=== PATIENT | male | born 1975 | race Caucasian/White ===

== ENCOUNTER 2019-04-21 03:30 | Inpatient (IN) | payer OTHER ==
[~2019-04-21] VITALS: Ht 177.8 cm; Wt 74.0 kg
--- NOTE | 2019-04-21 03:49 | NUR ---
FIRST CONTACT WITH PT. PT AWOKE WITH LEFT ARM/BACK PAIN AND CP AT 0300. PT'S AOX4. RESPS EVEN AND UNLABORED. EKG DONE AT BEDSIDE BY EMT. ALL MONITORS IN PLACE. CALL LIGHT WITHIN REACH.
[2019-04-21] MEDS ORDERED: ONDANSETRON 2MG/ML, 2ML ONE (03:56)
[2019-04-21] MEDS ORDERED: MORPHINE SULFATE 4 MG/ML, 1ML ONE ×2 (03:57→06:20)
[2019-04-21] MEDS ORDERED: ONDANSETRON 2MG/ML, 2ML IVPush ONE (04:00)
[2019-04-21] MEDS: MORPHINE SULFATE 4 MG/ML, 1ML IVPush PRN ×2 (04:03→06:22)
--- NOTE | 2019-04-21 04:06 | NUR ---
pt medicated per emar. pt tolerated well.
[2019-04-21 04:26] LABS: BASOPHILS # (AUTO) 0.07 x10^3/uL (0-0.1); BASOPHILS % (AUTO) 1 % (0-1); EOSINOPHILS # (AUTO) 0.24 x10^3/uL (0-0.4); EOSINOPHILS % (AUTO) 3 % (1-7); LYMPHOCYTES % (AUTO) 20 % (22-44); MD NO; MEAN CORPUSCULAR HEMOGLOBIN 31.1 pg (27.5-34.5); MEAN CORPUSCULAR HGB CONC 33.3 g/dL (33.2-36.2); MEAN CORPUSCULAR VOLUME 93.4 fL (81-97); MEAN PLATELET VOLUME 9.4 fL (7.4-10.4); MONOCYTES # (AUTO) 0.84 x10^3/uL (0.2-0.8); MONOCYTES % (AUTO) 9 % (2-9); NEUTROPHILS % (AUTO) 68 % (42-75); PLATELET COUNT 241 x10^3/uL (130-400); RED BLOOD COUNT 5.03 x10^6/uL (4.38-5.82); RED CELL DISTRIBUTION WIDTH 13.4 % (9.4-14.8)
[2019-04-21 04:37] LABS: ANION GAP 9 mmol/L (5-15); CALCIUM 9.5 mg/dL (8.5-10.1); CHLORIDE 108 mmol/L (98-107)
[2019-04-21 04:44] LABS: ALANINE AMINOTRANSFERASE 27 U/L (12-78); ALKALINE PHOSPHATASE 110 U/L (45-117); BILIRUBIN,TOTAL 1.2 mg/dL (0.2-1.0); CREATININE 1.11 mg/dL (0.7-1.3); TOTAL PROTEIN 7.1 g/dL (6.4-8.2); TROPONIN I < 0.015 ng/mL (0.000-0.045)
--- NOTE | 2019-04-21 04:51 | NUR ---
pt to ct now.
--- NOTE | 2019-04-21 05:03 | NUR ---
pt back to room from ct.
[2019-04-21] MEDS ORDERED: OMNIPAQUE 350 MG/ML, 100ML BOTTLE ONE (05:09)
--- NOTE | 2019-04-21 06:09 | NUR ---
PT RESTING IN [facility]. RESPS EVEN AND UNLABORED. ALL MONITORS IN PLACE. CALL LIGHT WITHIN REACH.
--- NOTE | 2019-04-21 06:24 | NUR ---
pt medicated per emar for pain. pt tolerated well.
[2019-04-21] MEDS ORDERED: HEPARIN 5,000 UNITS/ML, 1ML ONE (06:29)
[2019-04-21] MEDS ORDERED: HEPARIN 25,000 UNITS/500ML PMX 500 ML ONE (06:30)
[2019-04-21] MEDS ORDERED: HEPARIN 5,000 UNITS/ML, 1ML IV ONE (06:30)
[2019-04-21] MEDS: HEPARIN 25,000 UNITS/500ML PMX 500 ML IV PRN (06:44)
--- NOTE | 2019-04-21 06:46 | NUR ---
pt medicated per emar. pt tolerated well.
--- NOTE | 2019-04-21 06:58 | NUR ---
REPORT GIVEN TO BHARATH BERMAN.
--- NOTE | 2019-04-21 06:59 | NUR ---
REPORT TAKEN FROM MADELINE. PT DENIES NEEDS AT THIS TIME. CALL LIGHT IN REACH.
--- NOTE | 2019-04-21 07:22 | NUR ---
SECOND IV STARTED. [facility] DR. OVALLES AT BEDSIDE TO UPDATE PT ON POC. PT DENIES NEEDS AT THIS TIME. CALL LIGHT IN REACH.
[2019-04-21] MEDS ORDERED: LABETALOL 5MG/ML, 20ML IVPush PRN (07:30)
[2019-04-21] MEDS ORDERED: ACETAMINOPHEN 325 MG TABLET PO PRN (07:30)
[2019-04-21] MEDS ORDERED: hydrALAzine 20 MG/ML, 1ML IVPush PRN (07:30)
[2019-04-21] MEDS ORDERED: ONDANSETRON 2MG/ML, 2ML IVPush PRN (07:30)
[2019-04-21] MEDS ORDERED: OXYcodone/APAP 5/325MG TABLET PO PRN (07:30)
--- NOTE | 2019-04-21 07:45 | NUR ---
REPORT GIVEN TO ANTONELLA SOMMER ON CARDIAC TELE.
[2019-04-21] MEDS: KETOROLAC 30 MG/1 ML IV PRN ×2 (08:04→14:14)
[2019-04-21 08:05] VITALS: BP 128/81
[2019-04-21] MEDS: SODIUM CHLORIDE 0.9% 1,000 ML IV SCH (08:07)
[2019-04-21] MEDS: NICOTINE 7 MG/24 HR PATCH.TD24 TD SCH (08:07)
[2019-04-21 08:14] LABS: TROPONIN I < 0.015 ng/mL (0.000-0.045)
[2019-04-21 13:01] LABS: TROPONIN I < 0.015 ng/mL (0.000-0.045)
[2019-04-21 15:00] VITALS: BP 118/76
[2019-04-21] MEDS ORDERED: DIPHENHYDRAMINE 25 MG CAPSULE PO PRN (18:00)
[2019-04-21] MEDS ORDERED: PROMETHAZINE 25 MG/ML, 1ML IM PRN (18:00)
[2019-04-21] MEDS ORDERED: OMEP20TA62 PO (18:05)
[2019-04-21 20:26] VITALS: BP 142/82
[2019-04-21] MEDS: morphine SULFATE 10 MG/ML, 1ML IVPush PRN (20:28)
[2019-04-21] MEDS ORDERED: HEPARIN 5,000 UNITS/ML, 1ML IV PRN (20:30)
[2019-04-22 03:06] LABS: BASOPHILS # (AUTO) 0.02 x10^3/uL (0-0.1); BASOPHILS % (AUTO) 0 % (0-1); EOSINOPHILS # (AUTO) 0.13 x10^3/uL (0-0.4); EOSINOPHILS % (AUTO) 2 % (1-7); LYMPHOCYTES # (AUTO) 1.87 x10^3/uL (1-3.4); LYMPHOCYTES % (AUTO) 23 % (22-44); MD NO; MEAN CORPUSCULAR HEMOGLOBIN 31.2 pg (27.5-34.5); MEAN CORPUSCULAR HGB CONC 33.3 g/dL (33.2-36.2); MEAN CORPUSCULAR VOLUME 93.8 fL (81-97); MEAN PLATELET VOLUME 9.3 fL (7.4-10.4); MONOCYTES # (AUTO) 0.68 x10^3/uL (0.2-0.8); MONOCYTES % (AUTO) 9 % (2-9); NEUTROPHILS # (AUTO) 5.33 x10^3/uL (1.8-6.8); NEUTROPHILS % (AUTO) 66 % (42-75); PLATELET COUNT 225 x10^3/uL (130-400); RED BLOOD COUNT 4.47 x10^6/uL (4.38-5.82); RED CELL DISTRIBUTION WIDTH 13.9 % (9.4-14.8)
[2019-04-22 03:15] VITALS: BP 116/79
[2019-04-22 03:16] LABS: ANION GAP 5 mmol/L (5-15); CALCIUM 8.6 mg/dL (8.5-10.1); CHLORIDE 110 mmol/L (98-107); CREATININE 0.79 mg/dL (0.7-1.3)
[2019-04-22 03:17] LABS: ALANINE AMINOTRANSFERASE 19 U/L (12-78); ALBUMIN 3.1 g/dL (3.4-5.0)
[2019-04-22 03:19] LABS: ALKALINE PHOSPHATASE 87 U/L (45-117); BILIRUBIN,TOTAL 1.2 mg/dL (0.2-1.0); TOTAL PROTEIN 6.1 g/dL (6.4-8.2)
[2019-04-22] MEDS: SODIUM CHLORIDE 0.9% 1,000 ML IV SCH (03:26)
[2019-04-22] MEDS: morphine SULFATE 10 MG/ML, 1ML IVPush PRN ×2 (03:26→08:29)
[2019-04-22 07:13] VITALS: BP 114/67
[2019-04-22] MEDS: HEPARIN 25,000 UNITS/500ML PMX 500 ML IV PRN (07:14)
[2019-04-22] MEDS: NICOTINE 7 MG/24 HR PATCH.TD24 TD SCH (08:15)
[2019-04-22] MEDS ORDERED: APIXABAN 5 MG TABLET PO SCH ×2 (09:00)
[2019-04-22] MEDS ORDERED: IBUP-1221 PO (11:32)
[2019-04-22] MEDS ORDERED: APIX5TAB PO ×2 (11:32)
[2019-04-22] MEDS ORDERED: ACET325T26 PO (11:32)
[2019-04-22] MEDS ORDERED: OMEP-110 PO (11:32)
[2019-04-22] MEDS ORDERED: RIVA20TA PO ×2 (12:10→12:13)
[2019-04-22] MEDS ORDERED: RIVA15TA PO ×2 (12:10→12:12)
[2019-04-29] MEDS ORDERED: APIXABAN 5 MG TABLET PO SCH (09:00)
== END 2019-04-22 15:16 | disposition home or self-care (01) | DRG 176 ==
LOC: ED 07:20 → EDIP 07:24 → 5SO 07:59 → DCLOUNGE 04-22 15:03
PROVIDERS: ADMIT Emergency Medicine; ATTEND Internal Medicine
DX: I26.99 Other pulmonary embolism without acute cor pulmonale (principal); J98.11 Atelectasis; F12.90 Cannabis use, unspecified, uncomplicated; F17.200 Nicotine dependence, unspecified, uncomplicated; I27.20 Pulmonary hypertension, unspecified; K21.9 Gastro-esophageal reflux disease without esophagitis; Z88.8 Allergy status to other drugs, medicaments and biological substances; Z82.49 Family history of ischemic heart disease and other diseases of the circulatory system; R73.9 Hyperglycemia, unspecified
CPT/HCPCS: 0399T; 36415; 71275; 80053; 83880; 84484; 85025; 85520; 93005; 93306; 96374; 96375; 96376; G0378; J1644; J1885; J2405; J2550; Q9967; J2270; J7030; Q0163